=== PATIENT | female | born 1940 | race Caucasian/White ===

== ENCOUNTER 2018-05-16 05:11 | Inpatient (IN) ==
[2018-05-16] MEDS: Levothyroxine 50 MCG Tablet PO SCH (05:00)
[2018-05-16] MEDS ORDERED: Chlorhexidine Gluconate 2% 1 Pack (2 Cloths) TOPICAL ONE (05:34)
[2018-05-16] MEDS ORDERED: Metoprolol Tartrate 25 MG Tablet PO ONE (05:34)
[2018-05-16] MEDS ORDERED: Vancomycin Inj 1,000 MG in Sodium Chlor 0.9% Inj 250 ML IV.SIG PRN (05:39)
[2018-05-16] MEDS ORDERED: Sodium Chlor 0.9% Inj 40 ML, Bupivacaine Liposo PF 1.3% Inj 20 ML, Bupivacaine/Epi PF 0... P-ARTICULR SCH ×3 (05:41)
[2018-05-16] MEDS ORDERED: Chlorhexidine 4% Topical 120 APPLIC/120 ML Bottle TOPICAL SCH (05:45)
[2018-05-16] MEDS ORDERED: Tranexamic Acid Inj 870 MG in Sodium Chlor 0.9% Inj 100 ML IV.SIG SCH (06:00)
[2018-05-16] MEDS ORDERED: ceFAZolin 2 GM Premix Inj 2 GM/50 ML PIGGYBACK IV.SIG ONE (07:10)
[2018-05-16 07:18] LABS: Prothrombin Time 10.5 sec (9.8-11.6)
[2018-05-16] MEDS ORDERED: Hydroxychloroquine 200 MG Tablet PO PRN (08:00)
[2018-05-16] MEDS ORDERED: Post-op Orders (for Pharmacy) OTHER STA (08:02)
[2018-05-16] MEDS ORDERED: Morphine Inj 4 MG/ML Vial IV.PUSH PRN (08:02)
[2018-05-16] MEDS ORDERED: Bisacodyl 10 MG Supp RECTAL PRN (08:02)
--- NOTE | 2018-05-16 09:24 | XR ---
EXAM DATE: 05/16/2018 9:20 AM EST AGE/SEX: 78 years / Female INDICATIONS: Left total hip replacement. CLINICAL DATA: This is the patient's initial encounter. Patient reports that signs and symptoms have been present for 1 day and indicates a pain score of Nonresponsive. MEDICAL/SURGICAL HISTORY: Non-responsive. Non-responsive. COMPARISON: No prior exams available for comparison. FINDINGS: 2 spot intraoperative fluoroscopic views of the left hip demonstrate a total hip arthroplasty. Compon ents appear well seated. CONCLUSION: Left hip arthroplasty. Electronically signed by: Francis Calloway MD Board Certified Radiologist 05/16/2018 9:22 AM EST
--- NOTE | 2018-05-16 09:34 | P.OP ---
- Preoperative Diagnosis (1) Osteoarthritis of left hip - Postoperative Diagnosis (1) Osteoarthritis of left hip Date of procedure: 05/16/18 Procedure: Left total hip arthroplasty, direct anterior exposure Anesthesia: GETA, local Surgeon: Dre Parikh MD Tennis Coach: Marita Cleary PA-C Operation and Findings: EBL: 300 cc INDICATION: This patient is a 78-year-old female status post previous right total hip replacement by the undersigned doing well. She has bilateral severe osteoarthritis of the hip joints. She has been treated conservatively with medications, physical therapy, altered activities. She is becoming progressively painful and having limited function. She now presents for surgical treatment NOTE: Marita Cleary PA-C was present for the entire surgical procedure as my advertising assistant manager. In my medical opinion her skill and care was necessary for the proper management of this patient. COMPONENTS: COMPANY: [employer] CUP: Frost, 50 mm, 100 series STEM: Corail, size 11, standard offset HEAD: 32 mm, +1 neck length, 12/14 taper, metal LINER: Altrex, 32, neutral PROCEDURE: This patient was brought to the operating room and anesthetized in the supine position. The patient was positioned on the [place] table with the operative leg extended and the contralateral leg held in proper position. The hip and leg was scrubbed with alcohol followed by Hibiclens followed by ChloraPrep and draped sterilely in the clean air suite. Preoperative fluoroscopic images were utilized. A templating x-ray was obtained and printed to be used during the case. A timeout was done and antibiotics were given within a routine time window. A 4 inch incision was made starting 2 cm distal and 2 cm lateral to the anterior superior iliac spine. The tensor fascia quentin fascia was identified and opened longitudinally in line with the incision. Deep retraction allowed good visualization in the interval between the tensor fascia quentin and the rectus and this was opened further. The posterior fascia was opened. Crossing vessels were coagulated appropriately. The anterior aspect of the hip capsule was identified. Retractors were placed above and below the capsule. The capsule was opened longitudinally. Stay sutures were utilized creating flaps for the anterior capsule. The femoral neck was cut at the right location and completed with an oscillating saw. The head and neck was removed and taken to the back table. The leg was externally rotated 60 degrees and traction placed on the extremity. The labrum was excised. A portion of the capsule was excised. Visibility was excellent. Retractors were positioned. Starting 6 mm from the final size reamer, we began reaming up to 1 mm from the anticipated size. This was visualized under fluoroscopy. A trial cup was positioned. This also was visualized under fluoroscopy and minor adjustments were made. The final preparation with a 50 reamer was utilized. The final cup was positioned in approximately 40 degrees of abduction and 20 degrees of forward flexion. This is visualized under fluoroscopy and was seated into the final position. Position was very satisfactory. A single hole eliminator was positioned followed by the plastic liner. The final solution was excellent. Traction was let off. The leg was brought into neutral rotation. A lifting took was positioned underneath the greater trochanter and proximal femur. The leg was maximally externally rotated and the foot drop to the floor across midline. Retractors were positioned. A box osteotome was used to gain entrance into the top of the femur. The canal was probed with a finder to ensure that we were within the canal. Successive broaching up to the final stem size was accomplished. Trial reduction showed excellent balancing. Adjustments were made. The wound was irrigated copiously and the canal irrigated. The final stem was inserted in proper orientation. A final trial reduction was performed, and the final head was impacted. The hip was reduced and with 60 degrees of external rotation the leg to be dropped to the floor without evidence of anterior subluxation. Intraoperative x-rays were obtained. Local anesthesia was utilized for a field block including posterior capsule, inferior capsule, cephalad capsule, region of the greater trochanter, tensor fascia quentin and subcutaneous tissue. The anterior capsule was repaired with interrupted #2 Tycron sutures. The fascia was run with 0 PDS on a loop. Subcutaneous tissue was approximated 2-0 Vicryl suture and skin with running intradermal 3-0 Vicryl followed by benzoin and Steri-Strips. A sterile dressing was applied. The patient was awakened and taken to the recovery room in satisfactory condition FINDINGS: There was severe osteoarthritis of the left hip joint. Alignment was satisfactory. Stability appeared to be excellent. Bone quality was average. There was no complication appreciated
--- NOTE | 2018-05-16 09:36 | P.DCO ---
- Physical Therapy Physical Therapy: Gait training (3 times per week for 2 weeks) Hip: Total hip, Protocol: Left Left Lower Extremity Weight Bearing: Weight bearing as tolerated - Case Management Consult Case Management Consult-Home Health: Yes - Certification Need for Home Health services: I have seen patient Summer Flores on 05/16/18. My clinical findings support the need for the requested home health care services because: Need for Home Health Services: High risk of falls Homebound Certification: I certify that my clinical findings support that this patient is homebound because: Homebound Certification: Unsteady gait/balance
[2018-05-16] MEDS ORDERED: fentaNYL Citrate Inj 100 MCG/2 ML Ampul ONE ×2 (09:56)
[2018-05-16] MEDS ORDERED: *morphine SULFATE 4 MG/ML PERIprocedure ONLY ONE ×2 (09:57→10:05)
[2018-05-16] MEDS ORDERED: HYDROmorphone PF Inj 0.5 MG/0.5 ML Syringe ONE ×2 (10:15→10:41)
[2018-05-16] MEDS: Multivitamin/Minerals Therapeutic Tablet PO SCH ×2 (11:12→21:56)
[2018-05-16] MEDS: ceFAZolin 1 GM Premix Inj 1 GM/50 ML PIGGYBACK IV.SIG ONE ×2 (14:35→17:31)
[2018-05-16] MEDS: ceFAZolin Inj 1 GM in Sodium Chlor 0.9% Inj 100 ML IV.SIG SCH ×2 (14:37→20:13)
[2018-05-16] MEDS: Senna/Docusate Sodium 8.6/50 MG Tablet PO SCH ×2 (16:10→21:56)
[2018-05-16] MEDS: Venlafaxine XR 75 MG Capsule PO SCH (16:10)
[2018-05-16] MEDS ORDERED: Temazepam 15 MG Capsule PO PRN (21:00)
[2018-05-16] MEDS ORDERED: VENLAFAXINE PO SCH (21:00)
[2018-05-17] MEDS: ceFAZolin Inj 1 GM in Sodium Chlor 0.9% Inj 100 ML IV.SIG SCH (01:54)
[2018-05-17] MEDS: Levothyroxine 50 MCG Tablet PO SCH (05:20)
[2018-05-17 07:24] LABS: Hematocrit 29.5 % (35.0-46.0); Hemoglobin 10.1 gm/dL (11.6-15.3)
[2018-05-17] MEDS: Senna/Docusate Sodium 8.6/50 MG Tablet PO SCH (10:57)
[2018-05-17] MEDS: Multivitamin/Minerals Therapeutic Tablet PO SCH (10:57)
[2018-05-17] MEDS: Venlafaxine XR 75 MG Capsule PO SCH (10:57)
--- NOTE | 2018-05-17 13:11 | P.DS ---
Date of admission: 05/16/18 05:11 Primary care physician: Xuan Smith MD Attending physician on discharge: Dre Parikh Anticipated date of discharge: 05/17/18 DS: Medications - Discharge Medications Prescriptions: aspirin 81 mg PO BID 30 Days #60 tab hydrocodone-acetaminophen 1 tab PO Q4H PRN #42 tab PRN Reason: Acute Pain DS: Summary - Time Spent with Patient Total time spent providing and/or coordinating discharge services: - Quality: VTE Deep Vein Thrombosis/Pulmonary Embolism Present on Admission: No Exam Vital signs: Vital Signs 05/16/18 13:30 05/16/18 14:02 05/16/18 14:35 Temperature Pulse Rate 74 Respiratory Rate 17 17 Blood Pressure 121/78 Pulse Oximetry 97 98 05/16/18 14:40 05/16/18 15:57 05/16/18 16:40 Temperature 97.9 F 97.2 F L Pulse Rate 74 61 Respiratory Rate 17 20 Blood Pressure 131/61 149/70 H Pulse Oximetry 97 97 95 05/16/18 20:00 05/17/18 00:00 05/17/18 04:00 Temperature 97 F L 98.6 F 98.5 F Pulse Rate 91 H 84 82 Respiratory Rate 18 18 18 Blood Pressure 163/74 H 154/67 H 134/60 Pulse Oximetry 99 97 96 05/17/18 08:00 Temperature 97.8 F Pulse Rate Respiratory Rate Blood Pressure 134/63 Pulse Oximetry 97 Intake & Output 05/16/18 05/17/18 05/17/18 18:59 06:59 18:59 Intake Total 1608.7 / 1608.7 2063 Output Total 390 / 390 Balance 1218.7 / 1218.7 2063 Weight 86.183 kg 86.183 kg Intake: IV 1508.7 / 1508.7 1963 / 1963 LR 1000 mL Inj 1,000 ML @ 80 1764 / 1764 mls/hr IV.CONT .[id number] [facility] Rx# :[id number] LR 1000 mL Inj 1,000 ML @ 30 1000 / 1000 mls/hr IV.SIG .Q24H [facility] Rx#: [id number] Cyklokapron Inj 870 MG In NS 108.7 / 108.7 Inj 100 ML @ 200 mls/hr IV.SIG ONCE [facility]MAY Rx#:[id number] Vancomycin Inj 1,000 MG In NS 250 / 250 Inj 250 ML @ 250 mls/hr IV.SIG MANAGER OF CARE PRN Rx#:[id number] Ancef 2 GM Premix Inj 2 gm In 50 / 50 50 ml @ 0 mls/hr IV.SIG .STK- MED ONE Rx#:[id number] Ancef Inj 1 GM In NS Inj 100 ML 100 / 100 200 / 200 @ 200 mls/hr IV.SIG Q6H [facility]AN[facility] Rx #:[id number] Oral 100 / 100 100 / 100 Output: Urine 90 / 90 Estimated Blood Loss 300 / 300 Other: # Voids 1 3 Date of Last Bowel Movement 05/11/18 05/11/18 # Bowel Movements 0 Results Labs on day of discharge: Labs from last 24 hours 05/17/18 06:45 Hgb 10.1 L Hct 29.5 L - Impressions ITS Impressions Hip X-Ray 05/16/18 00:00 CONCLUSION: Left hip arthroplasty. Discharge Plan - Discharge Disposition Patient Disposition: /Home Health Service - Discharge Condition Condition: Good - Discharge Order Discharge Orders: Discharge Order (Routine); Ordered 05/16/18 Ordered By: Dre Parikh - Physicians Team Primary Care Provider: Xuan Smith Attending Provider: Dre Parikh Other Providers: [facility] - Rxs /Orders / Referrals /Forms Prescriptions: New aspirin 81 mg Tablet,Chewable 81 mg PO BID 30 Days Qty: 60 RF: 0 hydrocodone-acetaminophen 7.5-325 mg Tablet 1 tab PO Q4H PRN (Reason: Acute Pain) Qty: 42 RF: 0 Continue acetaminophen [Acetaminophen Extra Strength] 500 mg Tablet 500 mg PO QID PRN (Reason: Pain) calcium carbonate [Calcium 500] 500 mg calcium (1,250 mg) Tablet,Chewable 2 tab PO DAILY cholecalciferol (vitamin D3) [Vitamin D3] 1,000 unit Capsule 1,000 unit PO DAILY hydroxychloroquine 200 mg Tablet 200 mg PO BID PRN (Reason: Itching) levothyroxine [Levoxyl] 50 mcg Tablet 50 mcg PO DAILY mv,Ca,min-iron [id number] [Hair,Skin and Nails] 1 mg iron-66.7 mcg-1,000 mcg Tablet 1 tab PO DAILY omega 3-pvm-xys-fish oil [Fish Oil] 1,000 mg (120 mg-180 mg) Capsule 1 cap PO BID omeprazole 40 mg Capsule,Delayed Release(Dr/Ec) 40 mg PO DAILY simvastatin 40 mg Tablet 40 mg PO QPM venlafaxine 75 mg Tablet 1 tab PO HS venlafaxine 75 mg Tablet 2 tab PO DAILY Discontinued aspirin [Aspirin Low Dose] 81 mg Tablet,Delayed Release (Dr/Ec) 81 mg PO DAILY Referrals: Dre Parikh MD [Physician] - See Instructions ( Your appointment has been scheduled for 05/29/18 at 10:50. If you cannot make this appointment, please call the office to reschedule ) Xuan Smith MD [Primary Care Provider] - See Instructions - Post Discharge Care Plan Care Plan Goals: Discharge Care Plan Goals for LEFT Total Hip Replacement You had a hip replacement surgery. This means your natural hip was replaced with an artificial joint (prosthesis). You may be recovering at home or in a rehabilitation facility. Either way, you must take care of your new hip. Here are some goals to help you heal well. Directions to Meet your Goals: 1. Activity & Exercises: * Take pain medicine as directed by your doctor. * Dont drive until your doctor says its OK. And never drive while taking opioid pain medicine. * Wear the support stockings you were given in the hospital as directed by your surgeon. * Dont sit for more than 30 to 45 minutes at one time. * Dont lean forward while sitting. * Dont cross your legs. * Keep your feet flat on the floor. Dont turn your foot or leg inward. This stresses your hip joint. * Use an elevated toilet seat for 6 weeks after surgery. * Nap if you are tired, but dont stay in bed all day. * Sit on a firm cushion when you ride in a car and avoid sitting too low. Try not to bend your hip too much when getting in and out of the car. 2. Prevent Falls/Injury: * Follow your doctors orders regarding how much weight to put on the affected leg. * Dont bend at the hip when you bend over. Don't bend at the waist to put on socks and shoes. And avoid picking up items from the floor. * Use a cane, crutches, a walker, or handrails until your balance, flexibility, and strength improve. And remember to ask for help from others when you need it. * Free up your hands so that you can use them to keep balance. Use a brianna pack , apron, or pockets to carry things. * Arrange your household to keep the items you need handy. Keep everything else out of the way. * Remove items that may cause you to fall, such as throw rugs and electrical cords. * Use nonslip bath mats, grab bars, an elevated toilet seat, and a shower chair in your bathroom * Sit on a shower stool or chair when you shower to keep from falling. 3. Precautions: * Prevent infection. Any infection will need to be treated immediately. Call your doctor right away if you think you might have an infection. * Tell your dentist that you have an artificial joint and take antibiotics as prescribed before any dental work. * Tell all your healthcare providers about your artificial joint before any medical procedure. * Maintain a healthy weight. Get help to lose any extra pounds. Added body weight puts stress on the joints. 4. Incision Care: * Prevent infection by washing your hands often. If an infection occurs, it will need to be treated right away. * Call your doctor right away if you think you may have an infection. Symptoms include a fever or an incision that leaks white, green, or yellow fluid. * Don't soak your incision in water until your doctor says its OK. This means no hot tubs, bathtubs, or swimming pools. * Follow your doctor's instructions for changing the dressing. * Dont rub the incision, or apply creams or lotions to it. * If you notice any redness or drainage around the bandage site, contact your surgeon's office immediately. 5. Follow-Up: Do Not miss your follow-up appointment. Keep up with all your appointments and yearly check ups When to call your doctor: Call your doctor right away if you have: Hip pain gets worse Pain or swelling in your calf or leg not related to your incision Tenderness or redness in your calf Fever of 100.4F (38C) or higher, or as directed by your healthcare provider Shaking chills Swelling or redness at the incision site gets worse Fluid draining from the incision Call 911: Call 911 right away if you have: Chest pain Shortness of breath Any pain or tenderness in your calf
--- NOTE | 2018-05-17 13:12 | P.PNOP ---
Subjective Interval history: Seen in PT room right before total joint class started. Patient states pain is fairly well controlled. NO new leg pain. No other concerns. who is present with her has many concerns about care such as bed clothes not being routinely changed, SCDs getting forgotten for 2 hours and wait times for nurses though the call mcdonald was not being used. Physical Exam Vital signs: Vital Signs 05/16/18 13:30 05/16/18 14:02 05/16/18 14:35 Temperature Pulse Rate 74 Respiratory Rate 17 17 Blood Pressure 121/78 Pulse Oximetry 97 98 05/16/18 14:40 05/16/18 15:57 05/16/18 16:40 Temperature 97.9 F 97.2 F L Pulse Rate 74 61 Respiratory Rate 17 20 Blood Pressure 131/61 149/70 H Pulse Oximetry 97 97 95 05/16/18 20:00 05/17/18 00:00 05/17/18 04:00 Temperature 97 F L 98.6 F 98.5 F Pulse Rate 91 H 84 82 Respiratory Rate 18 18 18 Blood Pressure 163/74 H 154/67 H 134/60 Pulse Oximetry 99 97 96 05/17/18 08:00 Temperature 97.8 F Pulse Rate Respiratory Rate Blood Pressure 134/63 Pulse Oximetry 97 Intake & Output 05/16/18 05/17/18 05/17/18 18:59 06:59 18:59 Intake Total 1608.7 / 1608.7 2063 Output Total 390 / 390 Balance 1218.7 / 1218.7 2063 Weight 86.183 kg 86.183 kg Intake: IV 1508.7 / 1508.7 1963 / 1963 LR 1000 mL Inj 1,000 ML @ 80 1764 / 1764 mls/hr IV.CONT .[id number] [facility] Rx# :[id number] LR 1000 mL Inj 1,000 ML @ 30 1000 / 1000 mls/hr IV.SIG .Q24H [facility] Rx#: [id number] Cyklokapron Inj 870 MG In NS 108.7 / 108.7 Inj 100 ML @ 200 mls/hr IV.SIG ONCE [facility] Rx#:[id number] Vancomycin Inj 1,000 MG In NS 250 / 250 Inj 250 ML @ 250 mls/hr IV.SIG TERMINAL MANAGER PRN Rx#:[id number] Ancef 2 GM Premix Inj 2 gm In 50 / 50 50 ml @ 0 mls/hr IV.SIG .STK- MED ONE Rx#:[id number] Ancef Inj 1 GM In NS Inj 100 ML 100 / 100 200 / 200 @ 200 mls/hr IV.SIG Q6H [facility] Rx #:[id number] Oral 100 / 100 100 / 100 Output: Urine 90 / 90 Estimated Blood Loss 300 / 300 Other: # Voids 1 3 Date of Last Bowel Movement 05/11/18 05/11/18 # Bowel Movements 0 Narrative: Sitting up in chair NAD With her LLE Hip dressing c/d/i, no drainage, mild swelling, no erythema +motor at distal, +sens, +nvi Neg homans - Constitutional no acute distress Results - Labs CBC & Chem 7: 05/17/18 06:45 Laboratory Results - last 24 hr 05/17/18 06:45 Hgb 10.1 L Hct 29.5 L - Procedures Left total hip arthroplasty, anterior Assessment and Plan - Ortho Post Op Day # 1 - Assessment and Plan pod#1 s/p L ANTHONY, anterior Doing well. Pain fairly well controlled. has some concerns about SCDs getting forgotten last night. This was addressed with nursing staff. Ok to d/c home w [facility] after PT today. Optifoam dressing intact. Do not remove. PO pain meds as needed. ASA 81mg bid PT - WBAT LLE. ANTHONY protocol. F/U in 2 weeks at [facility] as scheduled.
[2018-05-17 14:27] VITALS: BP 125/59; PULSE 83; RESP 20; TEMP 98.3; O2SAT 95
== END 2018-05-17 18:09 | disposition home health service (06) | DRG 470 ==
LOC: HSDI 05:11 → N06 15:09
PROVIDERS: ADMIT Orthopaedic Surgery Orthopaedic Surgery of the Spine; ATTEND Orthopaedic Surgery Orthopaedic Surgery of the Spine
CPT/HCPCS: 73502; 76000; 85014; 85018; 85610; 86850; 86900; 86901; 94150; 97110; 97116; 97150; 97162; 97166; 97535; C1776; C9290; J0690; J1170; J2250; J2270; J3010; J3370; J7050; J7120